=== PATIENT | female | born 1985 | race Caucasian/White ===

== ENCOUNTER 2017-02-04 08:48 | Emergency (ER) | payer BC ==
[~2017-02-04] VITALS: Ht 172.7 cm; Wt 93.1 kg
[2017-02-04] MEDS ORDERED: PRENATAL TABLE1 EACH PO (09:16)
[2017-02-04 10:18] LABS: HEMATOCRIT 35.7 % (36.0-46.0); MCH 29.8 PG (29.0-34.0); MCHC 34.2 G/DL (30.0-36.0); MCV 87.1 FL (83-99); MEAN PLAT.VOLUME 10.9 uM^3 (9.5-12.4); NRBC (%) 0.3 /100 WBC (0-0); PLATELET COUNT 269 K/uL (156-360); RBC DIS.WIDTH-CV 13.2 % (11.8-14.6); RBC DIS.WIDTH-SD 41.4 % (39-53); WHITE BLOOD COUNT 9.7 K/uL (4.1-10.2)
[2017-02-04 10:29] LABS: CHLORIDE 108 mEq/L (99-109); POTASSIUM 3.6 mEq/L (3.7-5.4); SODIUM 137 mEq/L (136-147)
[2017-02-04 10:32] LABS: GLUCOSE 93 mg/dL (70-99)
[2017-02-04 10:33] LABS: ANION GAP 6 MEQ/L (2-14)
[2017-02-04 10:34] LABS: TOTAL BILIRUBIN 0.5 mg/dL (0.0-1.0)
[2017-02-04 10:35] LABS: ALKALINE PHOSPHATASE 38 IU/L (3-129); GFR ESTIMATE (CALCULATED) > 59 mL/min/
[2017-02-04 10:36] LABS: UREA NITROGEN (BUN) 8 mg/dL (9-23)
[2017-02-04 11:29] LABS: ADD MIUA? YES; BILIRUBIN NEGATIVE; BLOOD NEGATIVE; COLOR YELLOW ((YELLOW)); GLUCOSE (STRIP) NEGATIVE; KETONES NEGATIVE; LEUKOCYTES MODERATE; NITRITE NEGATIVE; PROTEIN (STRIP) NEGATIVE; SPECIFIC GRAVITY 1.017 (1.000-1.030); UROBILINOGEN 0.2 MG/DL (0.2-1.0)
[2017-02-04 11:35] LABS: BACTERIA RARE /HPF; EPITHELIAL CELLS 1+ /HPF; MUCUS TRACE /LPF; RED BLOOD CELLS 0-5 /HPF (0-5); UCUL ADDED? YES
[2017-02-04 13:33] VITALS: BP 119/82
== END 2017-02-04 13:33 | disposition home or self-care (01) ==
LOC: EME 08:48
PROVIDERS: Nurse Practitioner Family
DX: O99.89 Other specified diseases and conditions complicating pregnancy, childbirth and the puerperium (principal); G47.00 Insomnia, unspecified; R11.0 Nausea; R00.2 Palpitations; Z3A.18 18 weeks gestation of pregnancy
CPT/HCPCS: 76805; 80053; 81003; 85027; 87086; 99281; 99283